=== PATIENT | male | born 1980 | race Caucasian/White ===

== ENCOUNTER 2023-05-03 08:45 | Outpatient (RCR) | payer OTHER | END 2023-05-06 | disposition home or self-care (01) | LOC: PT.GENESIS | DX: M54.50 Low back pain, unspecified (principal) | CPT/HCPCS: G0283-GP ==

== ENCOUNTER 2024-05-05 11:00 | Outpatient (RCR) | payer OTHER | END 2024-05-06 | disposition home or self-care (01) | LOC: PT.GENESIS | DX: M54.50 Low back pain, unspecified (principal) ==